=== PATIENT | male | born 1980 | race Two or more races ===

== ENCOUNTER 2023-10-15 12:11 | Emergency (ER) | payer OTHER ==
[~2023-10-15] VITALS: Ht 182.9 cm; Wt 102.1 kg
[2023-10-15] MEDS ORDERED: DYMISTA NASAL S23 GM NASAL (12:40)
[2023-10-15] MEDS ORDERED: FINASTERIDE1 MG PO (12:40)
[2023-10-15] MEDS ORDERED: EXFORGE HCT 101 EACH PO (12:40)
[2023-10-15] MEDS ORDERED: LIPITOR20 MG PO (12:41)
== END 2023-10-15 17:16 | disposition home or self-care (01) ==
LOC: ER 12:12
DX: J03.80 Acute tonsillitis due to other specified organisms (principal); Z91.048 Other nonmedicinal substance allergy status